=== PATIENT | male | born 1980 | race Caucasian/White ===

== ENCOUNTER 2016-06-11 12:43 | Emergency (ER) | payer MEDICAID ==
[~2016-06-11] VITALS: Ht 175.3 cm; Wt 75.0 kg
[2016-06-11] MEDS ORDERED: IBUP-1546 PO (13:00)
[2016-06-11] MEDS ORDERED: METHOCARBAMOL 500 MG TABLET PO ONE (14:15)
[2016-06-11] MEDS ORDERED: KETOROLAC TROMETHAMINE 60 MG/2 ML VIAL IM ONE (14:15)
[2016-06-11 14:44] VITALS: BP 125/83
== END 2016-06-11 14:46 | disposition home or self-care (01) ==
LOC: EMS 12:44
DX: S00.93XA Contusion of unspecified part of head, initial encounter (principal); H53.149 Visual discomfort, unspecified; W22.8XXA Striking against or struck by other objects, initial encounter; Y93.89 Activity, other specified; Y92.89 Other specified places as the place of occurrence of the external cause; Y99.8 Other external cause status
CPT/HCPCS: 96372; 99283; J1885